=== PATIENT | male | born 1945 | race Caucasian/White ===

== ENCOUNTER → 2024-03-12 10:29 | Outpatient (REF) | payer OTHER, SELFPAY | LOC: RAD 10:29 | PROVIDERS: ATTENDING PHYSICIAN Surgery; FAMILY PHYSICIAN Internal Medicine | DX: R07.1 Chest pain on breathing (principal); D48.19 Other specified neoplasm of uncertain behavior of connective and other soft tissue | CPT/HCPCS: 76604 ==

== ENCOUNTER → 2024-06-12 09:58 | Outpatient (REF) | payer OTHER, SELFPAY | LOC: HWRAD 09:58 | PROVIDERS: ATTENDING PHYSICIAN Surgery; FAMILY PHYSICIAN Internal Medicine | DX: D48.19 Other specified neoplasm of uncertain behavior of connective and other soft tissue (principal); R07.1 Chest pain on breathing | CPT/HCPCS: 76604 ==

== ENCOUNTER → 2025-06-13 13:09 | Outpatient (REF) | payer OTHER, SELFPAY | LOC: RAD 13:09 | PROVIDERS: ATTENDING PHYSICIAN Internal Medicine | DX: T14.90XA Injury, unspecified, initial encounter (principal); S99.921A Unspecified injury of right foot, initial encounter | CPT/HCPCS: 73620 ==